=== PATIENT | male | born 1940 | race Caucasian/White ===

== ENCOUNTER 2018-05-30 07:26 | Emergency (ER) | payer OTHER ==
[~2018-05-30] VITALS: Ht 177.8 cm; Wt 62.6 kg
[~2018-05-30 07:26] MED LIST: CARDURA XL4 MG; DICY20TA; DILTIAZEM 24HR240 MG; FINASTERIDE5 MG; FOLIC ACID1 MG; IRO-PLEX LIQUI120 ML; LEVAQUIN500 MG; PROTONIX40 M1; [UNRECOGNIZED DRUG - OTHER]; [UNRECOGNIZED DRUG - OTHER] PO; [UNRECOGNIZED DRUG - OTHER] PO
== END 2018-05-30 12:54 | disposition home or self-care (01) ==
LOC: ER 07:26
DX: R10.31 Right lower quadrant pain (principal)

== ENCOUNTER 2018-06-10 10:29 | Emergency (ER) | payer OTHER ==
[~2018-06-10] VITALS: Ht 177.8 cm; Wt 60.8 kg
== END 2018-06-10 14:47 | disposition home or self-care (01) ==
LOC: ER 10:29
DX: K59.09 Other constipation (principal); R10.84 Generalized abdominal pain

== ENCOUNTER 2018-06-18 07:09 | Day surgery (SDC) | payer OTHER | END 2018-06-18 13:30 | disposition home or self-care (01) | LOC: AMB-ENDOS 07:09 | DX: K64.8 Other hemorrhoids (principal); R19.4 Change in bowel habit ==